=== PATIENT | female | born 1940 | race Caucasian/White ===

== ENCOUNTER 2017-04-04 15:33 | Inpatient (IN) | payer MEDICAID, MEDICARE ==
[~2017-04-04] VITALS: Ht 162.6 cm; Wt 36.7 kg
[~2017-04-04 15:33] MED LIST: ASA81 PO; LISI-209 PO; MEMA10TA12 PO; MONT10TA22 PO
[2017-04-04] MEDS ORDERED: NACL 0.9% 1,000 ML IV SCH (15:35)
[2017-04-04 15:43] VITALS: BP_SYST 107
[2017-04-04] MEDS ORDERED: cefTRIAXone 1 GM IVPB PREMIX 50 ML IV ONE (15:45)
[2017-04-04] MEDS ORDERED: ASA81 PO (15:52)
[2017-04-04 16:28] LABS: BASOPHILS # (AUTO) 0.3 K/uL (0.0-0.2); HEMOGLOBIN 12.5 g/dL (12.0-16.0); LYMPHOCYTES # (AUTO) 1.2 K/uL (1.0-5.5); LYMPHOCYTES % (AUTO) 8.5 % (20.5-51.5); MEAN CORPUSCULAR HEMOGLOBIN 30 pg (27-31); MEAN CORPUSCULAR HGB CONC 32 % (32-36); MEAN CORPUSCULAR VOLUME 94 fL (79.0-98.0); MONOCYTES # (AUTO) 0.4 K/uL (0.0-1.0); NEUTROPHILS # (AUTO) 12.5 K/uL (1.8-7.7); NEUTROPHILS % (AUTO) 86.5 % (40.0-70.0); PLATELET COUNT (AUTO) 130 K/uL (130-430); RED BLOOD CELL COUNT(AUTO) 4.15 MIL/uL (4.2-6.2); RED CELL DISTRIBUTION WIDTH 13.7 % (9.0-15.0); WHITE BLOOD COUNT (AUTO) 14.4 K/uL (4.8-10.8)
[2017-04-04 16:36] LABS: ANION GAP 11 (5-15); CALCIUM 8.8 mg/dL (8.4-11.0); CHLORIDE 118 mmol/L (98-107); CREATININE 1.45 mg/dL (0.55-1.30); GLUCOSE 117 mg/dL (70-99); POTASSIUM 4.9 mmol/L (3.5-5.1); SODIUM SERUM 149 mmol/L (136-145); UREA NITROGEN, BLOOD 86 mg/dL (8-21)
[2017-04-04 16:41] LABS: ALANINE AMINOTRANSFERASE 25 U/L (12-78); ALBUMIN 2.7 g/dL (3.4-4.8); ASPARTATE AMINOTRANSFERASE 34 U/L (10-37); TOTAL BILIRUBIN 0.8 mg/dL (0.0-1.0); TOTAL PROTEIN, SERUM 6.5 g/dL (6.4-8.3)
[2017-04-04 16:41] LABS: INR 1.6 (0.8-1.2); PROTHROMBIN TIME 17.8 SECS (9.5-12.5)
[2017-04-04] MEDS ORDERED: NACL 0.9% 1,000 ML IV ONE (17:00)
[2017-04-04 18:29] LABS: BILIRUBIN,URINE 2+ (NEGATIVE); BLOOD, URINE 3+ (NEGATIVE); CLARITY/URINE SL CLOUDY (CLEAR); COLOR,URINE YELLOW (YELLOW); GLUCOSE,URINE TRACE (NEGATIVE); KETONES,URINE 1+ (NEGATIVE); LEUKOCYTE ESTERASE ,URINE 2+ (NEGATIVE); NITRITE, URINE NEGATIVE (NEGATIVE); PH,URINE 6.5 (5.0-8.0); PROTEIN URINE 2+ (NEGATIVE)
[2017-04-04 18:40] LABS: BACTERIA,URINE MANY /HPF (None Seen); RBC,URINE 80-100 /HPF (0-3); WBC,URINE 50-80 /HPF (0-3)
[2017-04-04] MEDS ORDERED: D5NS 1,000 ML IV ONE (18:45)
[2017-04-04] MEDS ORDERED: ACETAMINOPHEN 325 MG TABLET PO PRN (19:00)
[2017-04-04] MEDS ORDERED: MAGNESIUM SULFATE 50 ML IV PRN (19:00)
[2017-04-04] MEDS ORDERED: ONDANSETRON HCL 4 MG/2 ML VIAL IVP PRN (19:00)
[2017-04-04] MEDS ORDERED: DOCUSATE SODIUM 100 MG CAPSULE PO PRN (19:00)
[2017-04-04] MEDS ORDERED: ZOLPIDEM TARTRATE 5 MG TABLET PO PRN (19:00)
[2017-04-04] MEDS ORDERED: MORPHINE 2 MG/ML INJ. SYRINGE IVP PRN (19:00)
[2017-04-04] MEDS ORDERED: POTASSIUM CHLORIDE 10 MEQ TAB.PRT.SR PO PRN (19:00)
[2017-04-04] MEDS ORDERED: LORazepam 2 MG/ML VIAL IVP PRN (19:00)
[2017-04-04 20:40] VITALS: BP_SYST 88
[2017-04-04] MEDS: HEPARIN SODIUM,PORCINE 5000 UNITS/ML VIAL SUBCUT SCH (21:16)
[2017-04-05] VITALS: BP_SYST 103
[2017-04-05 04:00] VITALS: BP_SYST 99
[2017-04-05 06:46] LABS: BASOPHILS % (AUTO) 0.1 % (0.0-2.0); EOSINOPHILS % (AUTO) 0.1 % (0.0-4.0); HEMATOCRIT 35.1 % (36-48); HEMOGLOBIN 11.5 g/dL (12.0-16.0); LYMPHOCYTES # (AUTO) 0.5 K/uL (1.0-5.5); LYMPHOCYTES % (AUTO) 4.1 % (20.5-51.5); MEAN CORPUSCULAR HEMOGLOBIN 31 pg (27-31); MEAN CORPUSCULAR HGB CONC 33 % (32-36); MEAN CORPUSCULAR VOLUME 94 fL (79.0-98.0); MONOCYTES # (AUTO) 0.3 K/uL (0.0-1.0); MONOCYTES % (AUTO) 2.3 % (1.7-9.3); NEUTROPHILS # (AUTO) 12.5 K/uL (1.8-7.7); PLATELET COUNT (AUTO) 80 K/uL (130-430); RED BLOOD CELL COUNT(AUTO) 3.72 MIL/uL (4.2-6.2); RED CELL DISTRIBUTION WIDTH 14.1 % (9.0-15.0); WHITE BLOOD COUNT (AUTO) 13.3 K/uL (4.8-10.8)
[2017-04-05 06:48] LABS: ANION GAP 6 (5-15); CALCIUM 7.7 mg/dL (8.4-11.0); GLUCOSE 219 mg/dL (70-99); POTASSIUM 4.3 mmol/L (3.5-5.1); SODIUM SERUM 152 mmol/L (136-145); UREA NITROGEN, BLOOD 80 mg/dL (8-21)
[2017-04-05 07:33] LABS: CHLORIDE 124 mmol/L (98-107)
[2017-04-05] MEDS: D5/0.45 NS 1,000 ML IV SCH ×2 (07:57→23:59)
[2017-04-05 08:30] VITALS: BP_SYST 120
[2017-04-05] MEDS ORDERED: cefTRIAXone 1 GM in D5W 50 ML IV SCH (09:00)
[2017-04-05] MEDS: HEPARIN SODIUM,PORCINE 5000 UNITS/ML VIAL SUBCUT SCH ×2 (09:38→20:45)
[2017-04-05 10:15] LABS: NEUTROPHILS % (AUTO) 93.4 % (40.0-70.0)
[2017-04-05] MEDS ORDERED: DEXTROSE 50% JECT 50 ML DISP.SYRIN IVP PRN (10:30)
[2017-04-05] MEDS: PIPERACILLIN/TAZO 2.25G/DEX-IS 50 ML IV SCH ×2 (12:00→17:44)
[2017-04-05 12:10] VITALS: BP_SYST 115
[2017-04-05] MEDS: INSULIN ASPART 100 UNITS/ML, 10 ML VIAL (NovoLOG) SUBCUT PRN ×3 (13:42→20:43)
[2017-04-05 16:41] VITALS: BP_SYST 122
[2017-04-05 18:33] LABS: ANION GAP 7 (5-15); CALCIUM 7.7 mg/dL (8.4-11.0); GLUCOSE 212 mg/dL (70-99); POTASSIUM 4.3 mmol/L (3.5-5.1); SODIUM SERUM 151 mmol/L (136-145); UREA NITROGEN, BLOOD 69 mg/dL (8-21)
[2017-04-05 18:48] LABS: CHLORIDE 123 mmol/L (98-107)
[2017-04-05 20:00] VITALS: BP_SYST 105
[2017-04-06] VITALS: BP_SYST 111
[2017-04-06] MEDS: PIPERACILLIN/TAZO 2.25G/DEX-IS 50 ML IV SCH ×3 (00:02→11:25)
[2017-04-06 04:41] VITALS: BP_SYST 118
[2017-04-06 07:07] LABS: BASOPHILS % (AUTO) 0.1 % (0.0-2.0); EOSINOPHILS % (AUTO) 0.1 % (0.0-4.0); HEMATOCRIT 31.6 % (36-48); HEMOGLOBIN 10.2 g/dL (12.0-16.0); LYMPHOCYTES # (AUTO) 0.6 K/uL (1.0-5.5); LYMPHOCYTES % (AUTO) 6.3 % (20.5-51.5); MEAN CORPUSCULAR HEMOGLOBIN 31 pg (27-31); MEAN CORPUSCULAR HGB CONC 32 % (32-36); MEAN CORPUSCULAR VOLUME 97 fL (79.0-98.0); MONOCYTES # (AUTO) 0.2 K/uL (0.0-1.0); MONOCYTES % (AUTO) 2.3 % (1.7-9.3); NEUTROPHILS # (AUTO) 8.8 K/uL (1.8-7.7); NEUTROPHILS % (AUTO) 91.2 % (40.0-70.0); PLATELET COUNT (AUTO) 71 K/uL (130-430); RED BLOOD CELL COUNT(AUTO) 3.27 MIL/uL (4.2-6.2); RED CELL DISTRIBUTION WIDTH 14.4 % (9.0-15.0)
[2017-04-06 07:10] LABS: WHITE BLOOD COUNT (AUTO) 9.6 K/uL (4.8-10.8)
[2017-04-06 07:23] LABS: ANION GAP 4 (5-15); CALCIUM 7.7 mg/dL (8.4-11.0); CREATININE 0.89 mg/dL (0.55-1.30); GLUCOSE 95 mg/dL (70-99); POTASSIUM 3.6 mmol/L (3.5-5.1); SODIUM SERUM 151 mmol/L (136-145); UREA NITROGEN, BLOOD 58 mg/dL (8-21)
[2017-04-06 07:42] VITALS: BP_SYST 102
[2017-04-06 08:11] LABS: CHLORIDE 122 mmol/L (98-107)
[2017-04-06] MEDS: HEPARIN SODIUM,PORCINE 5000 UNITS/ML VIAL SUBCUT SCH ×2 (08:26→20:56)
[2017-04-06] MEDS: LACTOBACILLUS RHAMNOSUS GG 1 CAP CAPSULE PO SCH ×2 (09:37→20:53)
[2017-04-06] MEDS: INSULIN ASPART 100 UNITS/ML, 10 ML VIAL (NovoLOG) SUBCUT PRN ×3 (11:25→20:56)
[2017-04-06 11:28] VITALS: BP_SYST 100
[2017-04-06] MEDS: D5/0.45 NS 1,000 ML IV SCH (11:28)
[2017-04-06] MEDS: D5W 1,000 ML IV SCH (14:52)
[2017-04-06] MEDS ORDERED: SODIUM CL 3% FOR INHALATION 15 ML VIAL.NEB INH ONE (15:26)
[2017-04-06 15:45] VITALS: BP_SYST 104
[2017-04-06 19:30] VITALS: BP_SYST 112
[2017-04-07] VITALS (8 sets, daily range): BP systolic 88–106
[2017-04-07] MEDS: D5W 1,000 ML IV SCH ×2 (05:19→21:24)
[2017-04-07 06:24] LABS: ANION GAP 1 (5-15); CALCIUM 7.7 mg/dL (8.4-11.0); CHLORIDE 117 mmol/L (98-107); CREATININE 0.77 mg/dL (0.55-1.30); GLUCOSE 92 mg/dL (70-99); POTASSIUM 3.7 mmol/L (3.5-5.1); SODIUM SERUM 143 mmol/L (136-145); UREA NITROGEN, BLOOD 40 mg/dL (8-21)
[2017-04-07 06:26] LABS: BASOPHILS % (AUTO) 0.4 % (0.0-2.0); EOSINOPHILS % (AUTO) 0.1 % (0.0-4.0); HEMATOCRIT 32.5 % (36-48); HEMOGLOBIN 10.5 g/dL (12.0-16.0); LYMPHOCYTES # (AUTO) 0.7 K/uL (1.0-5.5); LYMPHOCYTES % (AUTO) 6.5 % (20.5-51.5); MEAN CORPUSCULAR HEMOGLOBIN 31 pg (27-31); MEAN CORPUSCULAR HGB CONC 32 % (32-36); MEAN CORPUSCULAR VOLUME 96 fL (79.0-98.0); MONOCYTES # (AUTO) 0.4 K/uL (0.0-1.0); MONOCYTES % (AUTO) 4.2 % (1.7-9.3); NEUTROPHILS # (AUTO) 9.3 K/uL (1.8-7.7); NEUTROPHILS % (AUTO) 88.8 % (40.0-70.0); PLATELET COUNT (AUTO) 70 K/uL (130-430); RED BLOOD CELL COUNT(AUTO) 3.39 MIL/uL (4.2-6.2); RED CELL DISTRIBUTION WIDTH 14.1 % (9.0-15.0); WHITE BLOOD COUNT (AUTO) 10.4 K/uL (4.8-10.8)
[2017-04-07] MEDS: LACTOBACILLUS RHAMNOSUS GG 1 CAP CAPSULE PO SCH ×2 (08:57→21:00)
[2017-04-07] MEDS: HEPARIN SODIUM,PORCINE 5000 UNITS/ML VIAL SUBCUT SCH ×2 (08:58→20:56)
[2017-04-07] MEDS: INSULIN ASPART 100 UNITS/ML, 10 ML VIAL (NovoLOG) SUBCUT PRN (11:37)
[2017-04-07] MEDS ORDERED: NACL 0.9% 1,000 ML IV SCH (20:25)
[2017-04-07] MEDS ORDERED: NS 500 ML IV ONE (22:15)
[2017-04-07] MEDS ORDERED: NACL 0.9% 1,000 ML IV ONE (23:09)
[2017-04-08] MEDS: D5NS 1,000 ML IV SCH ×2 (00:11→17:51)
[2017-04-08 04:03] VITALS: BP_SYST 100
[2017-04-08 06:53] LABS: BASOPHILS % (AUTO) 0.1 % (0.0-2.0); EOSINOPHILS % (AUTO) 0.3 % (0.0-4.0); HEMOGLOBIN 10.2 g/dL (12.0-16.0); MONOCYTES # (AUTO) 0.3 K/uL (0.0-1.0)
[2017-04-08 07:04] LABS: HEMATOCRIT 31.1 % (36-48); LYMPHOCYTES % (AUTO) 11.2 % (20.5-51.5); MEAN CORPUSCULAR HEMOGLOBIN 31 pg (27-31); MEAN CORPUSCULAR HGB CONC 33 % (32-36); MEAN CORPUSCULAR VOLUME 95 fL (79.0-98.0); MONOCYTES % (AUTO) 3.7 % (1.7-9.3); NEUTROPHILS # (AUTO) 7.4 K/uL (1.8-7.7); NEUTROPHILS % (AUTO) 84.7 % (40.0-70.0); PLATELET COUNT (AUTO) 71 K/uL (130-430); RED BLOOD CELL COUNT(AUTO) 3.26 MIL/uL (4.2-6.2); RED CELL DISTRIBUTION WIDTH 14.4 % (9.0-15.0); WHITE BLOOD COUNT (AUTO) 8.7 K/uL (4.8-10.8)
[2017-04-08 07:31] LABS: ANION GAP 4 (5-15); CALCIUM 7.3 mg/dL (8.4-11.0); CHLORIDE 113 mmol/L (98-107); CREATININE 0.62 mg/dL (0.55-1.30); GLUCOSE 101 mg/dL (70-99); POTASSIUM 4.1 mmol/L (3.5-5.1); SODIUM SERUM 140 mmol/L (136-145); UREA NITROGEN, BLOOD 27 mg/dL (8-21)
[2017-04-08 08:24] VITALS: BP_SYST 110
[2017-04-08] MEDS: LACTOBACILLUS RHAMNOSUS GG 1 CAP CAPSULE PO SCH ×2 (08:31→21:37)
[2017-04-08] MEDS: HEPARIN SODIUM,PORCINE 5000 UNITS/ML VIAL SUBCUT SCH ×2 (08:33→21:43)
[2017-04-08 12:42] VITALS: BP_SYST 123
[2017-04-08 16:23] VITALS: BP_SYST 110
[2017-04-08 20:00] VITALS: BP_SYST 107
[2017-04-08 23:50] VITALS: BP_SYST 127
[2017-04-09 04:20] VITALS: BP_SYST 97
[2017-04-09 06:54] LABS: BASOPHILS % (AUTO) 0.1 % (0.0-2.0); EOSINOPHILS % (AUTO) 0.2 % (0.0-4.0); HEMOGLOBIN 10.2 g/dL (12.0-16.0); LYMPHOCYTES # (AUTO) 0.9 K/uL (1.0-5.5); MEAN CORPUSCULAR HEMOGLOBIN 31 pg (27-31); MEAN CORPUSCULAR HGB CONC 32 % (32-36); MEAN CORPUSCULAR VOLUME 96 fL (79.0-98.0); MONOCYTES # (AUTO) 0.4 K/uL (0.0-1.0); MONOCYTES % (AUTO) 4.1 % (1.7-9.3); NEUTROPHILS # (AUTO) 7.4 K/uL (1.8-7.7); NEUTROPHILS % (AUTO) 85.6 % (40.0-70.0); PLATELET COUNT (AUTO) 87 K/uL (130-430); RED BLOOD CELL COUNT(AUTO) 3.34 MIL/uL (4.2-6.2); WHITE BLOOD COUNT (AUTO) 8.7 K/uL (4.8-10.8)
[2017-04-09 07:02] LABS: ANION GAP 2 (5-15); CALCIUM 7.6 mg/dL (8.4-11.0); CHLORIDE 115 mmol/L (98-107); CREATININE 0.54 mg/dL (0.55-1.30); GLUCOSE 104 mg/dL (70-99); POTASSIUM 4.1 mmol/L (3.5-5.1); SODIUM SERUM 141 mmol/L (136-145); UREA NITROGEN, BLOOD 21 mg/dL (8-21)
[2017-04-09 08:00] VITALS: BP_SYST 101
[2017-04-09] MEDS: HEPARIN SODIUM,PORCINE 5000 UNITS/ML VIAL SUBCUT SCH ×2 (10:05→21:29)
[2017-04-09] MEDS: LACTOBACILLUS RHAMNOSUS GG 1 CAP CAPSULE PO SCH ×2 (10:05→21:23)
[2017-04-09 12:00] VITALS: BP_SYST 105
[2017-04-09] MEDS ORDERED: FUROSEMIDE 20 MG/2 ML VIAL IVP ONE (14:30)
[2017-04-09] MEDS ORDERED: D5/0.45 NS 1,000 ML IV SCH (14:30)
[2017-04-09 16:28] VITALS: BP_SYST 130
[2017-04-09] MEDS: PIPERACILLIN/TAZO 3.375/DEX-IS 50 ML IV SCH ×2 (17:13→23:09)
[2017-04-09] MEDS: INSULIN ASPART 100 UNITS/ML, 10 ML VIAL (NovoLOG) SUBCUT PRN ×2 (17:23→21:43)
[2017-04-09 20:05] VITALS: BP_SYST 119
[2017-04-10] VITALS (7 sets, daily range): BP systolic 97–119
[2017-04-10] MEDS: PIPERACILLIN/TAZO 3.375/DEX-IS 50 ML IV SCH ×4 (05:38→23:11)
[2017-04-10 06:49] LABS: BASOPHILS # (AUTO) 0.1 K/uL (0.0-0.2); BASOPHILS % (AUTO) 0.5 % (0.0-2.0); EOSINOPHILS % (AUTO) 0.2 % (0.0-4.0); HEMATOCRIT 32.3 % (36-48); HEMOGLOBIN 10.5 g/dL (12.0-16.0); LYMPHOCYTES # (AUTO) 0.8 K/uL (1.0-5.5); LYMPHOCYTES % (AUTO) 8.4 % (20.5-51.5); MEAN CORPUSCULAR HEMOGLOBIN 31 pg (27-31); MEAN CORPUSCULAR HGB CONC 33 % (32-36); MEAN CORPUSCULAR VOLUME 95 fL (79.0-98.0); MONOCYTES # (AUTO) 0.5 K/uL (0.0-1.0); MONOCYTES % (AUTO) 5.1 % (1.7-9.3); NEUTROPHILS # (AUTO) 8.6 K/uL (1.8-7.7); NEUTROPHILS % (AUTO) 85.8 % (40.0-70.0); PLATELET COUNT (AUTO) 105 K/uL (130-430); RED BLOOD CELL COUNT(AUTO) 3.41 MIL/uL (4.2-6.2); RED CELL DISTRIBUTION WIDTH 14.8 % (9.0-15.0)
[2017-04-10] MEDS ORDERED: FUROSEMIDE 20 MG/2 ML VIAL IVP ONE (07:00)
[2017-04-10 07:22] LABS: ALANINE AMINOTRANSFERASE 127 U/L (12-78); ALBUMIN 1.4 g/dL (3.4-4.8); ANION GAP 2 (5-15); ASPARTATE AMINOTRANSFERASE 43 U/L (10-37); CALCIUM 7.8 mg/dL (8.4-11.0); CHLORIDE 110 mmol/L (98-107); CREATININE 0.52 mg/dL (0.55-1.30); GLUCOSE 94 mg/dL (70-99); POTASSIUM 3.7 mmol/L (3.5-5.1); SODIUM SERUM 139 mmol/L (136-145); TOTAL BILIRUBIN 0.4 mg/dL (0.0-1.0); UREA NITROGEN, BLOOD 17 mg/dL (8-21)
[2017-04-10] MEDS: LACTOBACILLUS RHAMNOSUS GG 1 CAP CAPSULE PO SCH ×2 (09:51→21:35)
[2017-04-10] MEDS: HEPARIN SODIUM,PORCINE 5000 UNITS/ML VIAL SUBCUT SCH ×2 (09:56→21:37)
[2017-04-10] MEDS: D5NS 1,000 ML IV SCH (17:47)
[2017-04-11 04:16] VITALS: BP_SYST 120
[2017-04-11] MEDS: PIPERACILLIN/TAZO 3.375/DEX-IS 50 ML IV SCH ×4 (05:32→23:25)
[2017-04-11 06:48] LABS: ALANINE AMINOTRANSFERASE 93 U/L (12-78); ALBUMIN 1.4 g/dL (3.4-4.8); ANION GAP 3 (5-15); ASPARTATE AMINOTRANSFERASE 34 U/L (10-37); CALCIUM 7.7 mg/dL (8.4-11.0); CHLORIDE 109 mmol/L (98-107); CREATININE 0.63 mg/dL (0.55-1.30); GLUCOSE 107 mg/dL (70-99); POTASSIUM 3.6 mmol/L (3.5-5.1); SODIUM SERUM 138 mmol/L (136-145); TOTAL BILIRUBIN 0.5 mg/dL (0.0-1.0); TOTAL PROTEIN, SERUM 5.1 g/dL (6.4-8.3); UREA NITROGEN, BLOOD 19 mg/dL (8-21)
[2017-04-11 08:00] VITALS: BP_SYST 142
[2017-04-11] MEDS: HEPARIN SODIUM,PORCINE 5000 UNITS/ML VIAL SUBCUT SCH ×2 (08:58→21:26)
[2017-04-11] MEDS ORDERED: HEPA500014 SUBCUT (10:09)
[2017-04-11] MEDS ORDERED: DEXT50DI5 IVP (10:09)
[2017-04-11] MEDS ORDERED: ACET325T53 PO (10:09)
[2017-04-11] MEDS ORDERED: DOCU-144 PO (10:09)
[2017-04-11] MEDS ORDERED: MORP2SYR IVP (10:09)
[2017-04-11] MEDS ORDERED: Blood Sugar Diagnostic XX (10:09)
[2017-04-11] MEDS ORDERED: SSNOVOLOG SUBCUT (10:09)
[2017-04-11 12:18] VITALS: BP_SYST 114
[2017-04-11 16:44] VITALS: BP_SYST 107
[2017-04-11] MEDS: D5NS 1,000 ML IV SCH (17:15)
[2017-04-11] MEDS: INSULIN ASPART 100 UNITS/ML, 10 ML VIAL (NovoLOG) SUBCUT PRN (17:28)
[2017-04-11 19:50] VITALS: BP_SYST 116
[2017-04-12 01:00] VITALS: BP_SYST 119
[2017-04-12] MEDS: D5NS 1,000 ML IV SCH (02:39)
[2017-04-12] MEDS: PIPERACILLIN/TAZO 3.375/DEX-IS 50 ML IV SCH ×3 (05:31→19:37)
[2017-04-12 07:50] LABS: HEMATOCRIT 34.1 % (36-48); HEMOGLOBIN 11.2 g/dL (12.0-16.0); MEAN CORPUSCULAR HEMOGLOBIN 31 pg (27-31); MEAN CORPUSCULAR HGB CONC 33 % (32-36); MEAN CORPUSCULAR VOLUME 95 fL (79.0-98.0); PLATELET COUNT (AUTO) 170 K/uL (130-430); RED BLOOD CELL COUNT(AUTO) 3.58 MIL/uL (4.2-6.2); RED CELL DISTRIBUTION WIDTH 15.7 % (9.0-15.0); WHITE BLOOD COUNT (AUTO) 9.8 K/uL (4.8-10.8)
[2017-04-12 08:05] VITALS: BP_SYST 100
[2017-04-12 08:21] LABS: ANION GAP 6 (5-15); CALCIUM 8.2 mg/dL (8.4-11.0); CHLORIDE 105 mmol/L (98-107); CREATININE 0.71 mg/dL (0.55-1.30); GLUCOSE 122 mg/dL (70-99); POTASSIUM 3.9 mmol/L (3.5-5.1); SODIUM SERUM 137 mmol/L (136-145); UREA NITROGEN, BLOOD 17 mg/dL (8-21)
[2017-04-12 08:30] VITALS: BP_SYST 101
[2017-04-12] MEDS: HEPARIN SODIUM,PORCINE 5000 UNITS/ML VIAL SUBCUT SCH ×2 (09:38→20:36)
[2017-04-12 10:01] LABS: ATYPICAL LYMPHOCYTES % 0 % (0-0); BAND % (MANUAL) 2 % (0-6); BASOPHILS % (MANUAL) 0 % (0-2); EOSINOPHILS % (MANUAL) 0 % (0-7); LYMPHOCYTES % (MANUAL) 12 % (20-46); MONOCYTES % (MANUAL) 5 % (0-11)
[2017-04-12 11:38] VITALS: BP_SYST 127
[2017-04-12] MEDS: INSULIN ASPART 100 UNITS/ML, 10 ML VIAL (NovoLOG) SUBCUT PRN ×2 (11:43→20:40)
[2017-04-12 15:33] VITALS: BP_SYST 107
[2017-04-12 20:32] VITALS: BP_SYST 90
[2017-04-13 00:07] VITALS: BP_SYST 105
[2017-04-13] MEDS: PIPERACILLIN/TAZO 3.375/DEX-IS 50 ML IV SCH ×3 (00:54→11:16)
[2017-04-13 04:18] VITALS: BP_SYST 90
[2017-04-13 07:41] LABS: BASOPHILS % (AUTO) 0.4 % (0.0-2.0); EOSINOPHILS % (AUTO) 0.1 % (0.0-4.0); HEMATOCRIT 32.7 % (36-48); HEMOGLOBIN 10.6 g/dL (12.0-16.0); LYMPHOCYTES % (AUTO) 12.1 % (20.5-51.5); MEAN CORPUSCULAR HEMOGLOBIN 30 pg (27-31); MEAN CORPUSCULAR HGB CONC 32 % (32-36); MEAN CORPUSCULAR VOLUME 94 fL (79.0-98.0); MONOCYTES # (AUTO) 0.4 K/uL (0.0-1.0); MONOCYTES % (AUTO) 4.6 % (1.7-9.3); NEUTROPHILS % (AUTO) 82.8 % (40.0-70.0); PLATELET COUNT (AUTO) 216 K/uL (130-430); RED BLOOD CELL COUNT(AUTO) 3.48 MIL/uL (4.2-6.2); RED CELL DISTRIBUTION WIDTH 15.5 % (9.0-15.0); WHITE BLOOD COUNT (AUTO) 8.4 K/uL (4.8-10.8)
[2017-04-13 07:57] LABS: ANION GAP 6 (5-15); CALCIUM 8.1 mg/dL (8.4-11.0); CHLORIDE 106 mmol/L (98-107); CREATININE 0.66 mg/dL (0.55-1.30); GLUCOSE 89 mg/dL (70-99); POTASSIUM 3.7 mmol/L (3.5-5.1); SODIUM SERUM 137 mmol/L (136-145); UREA NITROGEN, BLOOD 24 mg/dL (8-21)
[2017-04-13] MEDS: HEPARIN SODIUM,PORCINE 5000 UNITS/ML VIAL SUBCUT SCH (09:56)
[2017-04-13 11:46] VITALS: BP_SYST 91
[2017-04-13] MEDS: INSULIN ASPART 100 UNITS/ML, 10 ML VIAL (NovoLOG) SUBCUT PRN (12:21)
[2017-04-13] MEDS ORDERED: FUROSEMIDE 20 MG TABLET PO ONE (12:30)
[2017-04-13 13:43] VITALS: BP_SYST 91
[2017-04-13 15:29] VITALS: BP_SYST 101
== END 2017-04-13 17:10 | DRG 720 ==
LOC: SED 15:33 → STU 18:38 → SMU 04-08 11:32
PROVIDERS: ADMIT General Practice; ATTEND General Practice
DX: A41.9 Sepsis, unspecified organism (principal); J69.0 Pneumonitis due to inhalation of food and vomit; N17.0 Acute kidney failure with tubular necrosis; E43 Unspecified severe protein-calorie malnutrition; R65.21 Severe sepsis with septic shock; G93.41 Metabolic encephalopathy; E87.0 Hyperosmolality and hypernatremia; R13.10 Dysphagia, unspecified; G30.9 Alzheimer's disease, unspecified; I50.9 Heart failure, unspecified; F02.80 Dementia in other diseases classified elsewhere, unspecified severity, without behavioral disturbance, psychotic disturbance, mood disturbance, and anxiety; R53.2 Functional quadriplegia; E87.8 Other disorders of electrolyte and fluid balance, not elsewhere classified; E86.0 Dehydration; R64 Cachexia; N39.0 Urinary tract infection, site not specified; E86.1 Hypovolemia; N18.9 Chronic kidney disease, unspecified; M19.90 Unspecified osteoarthritis, unspecified site; B95.8 Unspecified staphylococcus as the cause of diseases classified elsewhere; I12.9 Hypertensive chronic kidney disease with stage 1 through stage 4 chronic kidney disease, or unspecified chronic kidney disease; E87.1 Hypo-osmolality and hyponatremia; Z66 Do not resuscitate; I13.0 Hypertensive heart and chronic kidney disease with heart failure and stage 1 through stage 4 chronic kidney disease, or unspecified chronic kidney disease; D63.8 Anemia in other chronic diseases classified elsewhere; D69.6 Thrombocytopenia, unspecified; E83.51 Hypocalcemia; R91.1 Solitary pulmonary nodule; Z68.1 Body mass index [BMI] 19.9 or less, adult
CPT/HCPCS: 36415; 71010; 71250-TC; 80048; 80053; 81000-TC; 82962; 83036; 83605; 83735-TC; 85007; 85025; 85027; 85610-TC; 85730-TC; 87040-TC; 87086; 92610-GN; 93005; 93306; 96361; 96365; 99291; J0696; J1644; J1815; J1940; J2060; J2543; J7030; J7040; J7042; J7050; J7060; J7131